=== PATIENT | female | born 1945 | race Hispanic/Latino ===

== ENCOUNTER → 2024-03-27 | Outpatient (CLI) | payer MEDICARE | END | disposition home or self-care (01) | LOC: RAH 08:30 | PROVIDERS: ATTEND Internal Medicine Gastroenterology | DX: R13.12 Dysphagia, oropharyngeal phase (principal); R63.30 Feeding difficulties, unspecified | CPT/HCPCS: 74230; 92611 ==

== ENCOUNTER → 2024-04-06 | Outpatient (CLI) | payer MEDICARE | END | disposition home or self-care (01) | LOC: RAH 08:07 | PROVIDERS: ATTEND Internal Medicine Gastroenterology | DX: K21.9 Gastro-esophageal reflux disease without esophagitis (principal); K44.9 Diaphragmatic hernia without obstruction or gangrene; R13.12 Dysphagia, oropharyngeal phase | CPT/HCPCS: 74240 ==

== ENCOUNTER → 2024-12-06 | Outpatient (CLI) | payer MEDICARE ==
--- NOTE | 2024-12-06 10:21 | HMCIMG ---
US ABDOMINAL COMPLETE REASON: rlq pain COMPARISON: None FINDINGS: There is normal sonographic appearance of the liver. There are no focal mass lesions. The liver is not enlarged.Cholecystectomy Kidneys appear normal in size and appearance. There is no evidence of mass, stone or hydronephrosis. Spleen and common duct appear normal. Aorta and inferior vena cava appear normal. The pancreas appears normal as well. Portal vein is patent with a normal direction of flow. IMPRESSION: 1. Absent gallbladder. 2. Otherwise normal abdomen sonogram.
--- NOTE | 2024-12-06 10:22 | HMCIMG ---
US PELVIC NON-OB COMP REASON: rlq pain COMPARISON: None TECHNIQUE: Routine pelvic sonogram was performed. FINDINGS: There is an atrophic uterus measuring 3.2 x 2.3 x 2.8 cm. There are no focal masses. Ovaries are not separately identified. There are no adnexal masses. Urinary bladder was only partially distended, visualized portions appear normal. IMPRESSION: 1. Atrophic uterus consistent with age, otherwise unremarkable exam.
== END | disposition home or self-care (01) ==
LOC: RAH 07:12
PROVIDERS: ATTEND Nurse Practitioner Family
DX: R10.31 Right lower quadrant pain (principal); N85.8 Other specified noninflammatory disorders of uterus; Z90.49 Acquired absence of other specified parts of digestive tract
CPT/HCPCS: 76700; 76856